=== PATIENT | male | born 1980 | race Caucasian/White ===

== ENCOUNTER 2018-04-28 03:44 | Emergency (ER) | payer SELFPAY ==
[~2018-04-28] VITALS: Ht 177.8 cm; Wt 77.1 kg
--- NOTE | 2018-04-28 04:00 | NUR ---
PT STATES HE IS HEARING VOICES/ FEELING OTHER "CREATURES JUMPING ON" HIM AND CAN VISUALIZE OTHER "CREATURES".
--- NOTE | 2018-04-28 04:00 | NUR ---
PT BBRA FROM HOME C/C OF "FEELING PARANOID AND NEEDING AN ESCORT TO A PSYCHIATRIC FACILITY". PT IS AAOX4. VSS. SKIN WNL. PT STATES "I WAS AT HOME AND WOKE UP TO WITCHES AND CATS ALL IN MY ROOM. I RAN PAST THEM TO THE NEAREST SEVEN ELEVEN AND HAD SOMEONE CALL THE DEPUTY COMMISSIONER. I'AM SCARED FOR MY LIFE AND BELIEVE I AM GOING TO BE ABDUCTED BY INVISIBLE CAT CREATURES". PT ADMITS TO SMOKING [employer] 6HRS [employer]IST[employer] AND HAS HX OF OPIOD AND METH ABUSE. -SI,-HI. PT NOTED TO BE PARANOID. PT PLACED ON MONITOR AND POX. PT SAFETY AND COMFORT MEASURES IN PLACE. MD BEDSIDE FOR EVAL. WILL CONTINUE TO MONITOR PT.
--- NOTE | 2018-04-28 04:01 | NUR ---
URINE SAMPLE COLLECTED AND CALLED LAB FOR METAL MOLDER
[2018-04-28 04:07] VITALS: BP 141/99
--- NOTE | 2018-04-28 04:09 | NUR ---
MIDDLE CARD TENDER BESIDE
[2018-04-28] MEDS ORDERED: OLANZAPINE 5 MG TABLET ONE (04:10)
[2018-04-28 04:24] LABS: BASOPHILS % (AUTO) 0.6 % (0.0-2.0); EOSINOPHILS % (AUTO) 2.9 % (0.0-6.0); HEMATOCRIT 48 % (39-51); HEMOGLOBIN 16.7 g/dL (13.5-17.5); LYMPHOCYTES # (AUTO) 1.6 /CMM (0.8-4.8); LYMPHOCYTES % (AUTO) 32.7 % (20.0-44.0); MEAN CORPUSCULAR HEMOGLOBIN 28 PG (26.0-33.0); MEAN CORPUSCULAR HGB CONC 35 g/dl (31.0-36.0); MEAN CORPUSCULAR VOLUME 80 fL (80-96); MONOCYTES # (AUTO) 0.6 /CMM (0.1-1.30); MONOCYTES % (AUTO) 12.9 % (2.0-12.0); NEUTROPHILS # (AUTO) 2.5 /CMM (1.8-8.9); NEUTROPHILS % (AUTO) 50.9 % (43.0-81.0); PLATELET COUNT (AUTO) 191 /CMM (150-450); RED BLOOD CELL COUNT(AUTO) 6.06 MIL/uL (4.5-6.0); WHITE BLOOD COUNT (AUTO) 4.9 K/uL (4.3-11.0)
[2018-04-28 04:29] LABS: APPEARANCE,URINE CLOUDY (CLEAR); BILIRUBIN,URINE 1+ (NEGATIVE); BLOOD, URINE NEGATIVE Ery/uL (NEGATIVE); COLOR,URINE DARK YELLO (YELLOW); KETONES,URINE TRACE (NEGATIVE); LEUKOCYTE ESTERASE ,URINE NEGATIVE (NEGATIVE); NITRITE, URINE NEGATIVE (NEGATIVE); PH,URINE 5.5 (5.0-8.0); PROTEIN,URINE 2+ mg/dl (NEGATIVE); UGLUCOSE NEGATIVE (NEGATIVE)
[2018-04-28] MEDS ORDERED: OLANZAPINE 5 MG TABLET PO ONE (04:30)
[2018-04-28 04:39] LABS: ALANINE AMINOTRANSFERASE 63 U/L (12-78); ALBUMIN 4.4 g/dL (3.4-5.0); ALCOHOL, BLOOD < 3 mg/dL (0-0); ALKALINE PHOSPHATASE 92 U/L (46-116); ASPARTATE AMINOTRANSFERASE 31 U/L (15-37); BILIRUBIN,DIRECT 0.2 mg/dL (0.0-0.2); CALCIUM, SERUM 9.8 mg/dL (8.5-10.1); CARBON DIOXIDE 26 mmol/L (21-32); CHLORIDE 100 mmol/L (98-107); CREATININE 1.1 mg/dL (0.6-1.3); GLUCOSE 127 mg/dL (74-106); POTASSIUM 3.5 mmol/L (3.5-5.1); SALICYLATE 3.2 mg/dL (2.8-20.0); SODIUM SERUM 137 mmol/L (136-145); TOTAL PROTEIN, SERUM 8.7 g/dL (6.4-8.2); UREA NITROGEN, BLOOD 12 mg/dL (7-18)
[2018-04-28 04:45] LABS: ACETAMINOPHEN 0 ug/ml (10-30)
[2018-04-28 05:18] LABS: BACTERIA,URINE Few /HPF (None Seen); RBC,URINE 0-2 /HPF (0-2); SQUAMOUS EPITHELIAL CELL,UR Rare /HPF (None Seen); WBC,URINE 0-2 /HPF (0-3)
[2018-04-28 05:19] LABS: URINE AMORPHOUS URATE Moderate /HPF (None Seen)
--- NOTE | 2018-04-28 05:21 | NUR ---
Patient eloped from facility cursing at staff members. ER MD notified of pt's refusal for further care.
== END 2018-04-28 05:26 | disposition left against medical advice (07) ==
LOC: ER 03:46
DX: F22 Delusional disorders (principal); F19.10 Other psychoactive substance abuse, uncomplicated
CPT/HCPCS: 36415; 80048; 80076; 80305; 80329; 81001; 85025; 99284; A4606; G0480 ×2; Z7610; 81000-TC